=== PATIENT | female | born 1990 | race Caucasian/White ===

== ENCOUNTER 2017-04-01 07:25 | Emergency (ER) | payer OTHER ==
[~2017-04-01] VITALS: Ht 162.6 cm; Wt 86.2 kg
[2017-04-01] MEDS ORDERED: PRENATAL PO (07:40)
[2017-04-01] MEDS ORDERED: DICLEGIS DR 101 EACH PO (07:41)
[2017-04-01] MEDS ORDERED: ZANTAC 150MG T150 MG PO (07:41)
[2017-04-01] MEDS ORDERED: COLACE100 MG PO (07:41)
[2017-04-01 07:52] LABS: URINE BILIRUBIN NEGATIVE (Negative); URINE BLOOD NEGATIVE (Negative); URINE CLARITY CLEAR; URINE COLOR YELLOW; URINE GLUCOSE-RANDOM NEGATIVE (Negative); URINE KETONES NEGATIVE (Negative); URINE LEUKOCYTES-REFLEX 1+ (Negative); URINE NITRITE-REFLEX NEGATIVE (Negative); URINE PROTEIN NEGATIVE (Negative); URINE SPECIFIC GRAVITY 1.025 (1.005-1.030); URINE UROBILINOGEN 0.2 E.U./dl (0.2-1.0)
[2017-04-01 08:03] LABS: CASTS None Seen /LPF (None Seen); CRYSTALS None Seen /LPF (None Seen); MUCUS None Seen strn/LPF (None Seen); SQUAMOUS 4-10 Moderate /LPF (0-3); URINE RBC 3-10 Few /HPF (0-2); URINE WBC-REFLEX 6-15 Few /HPF (0-5)
[2017-04-01 08:07] LABS: HEMOGLOBIN 11.3 gm/dL (12.0-15.0); NUCLEATED RBCS 0 /100WBC
[2017-04-01 08:09] LABS: ABSOLUTE BASOPHILS 0.1 thou/uL (0.0-0.2); ABSOLUTE EOSINOPHILS 0.1 thou/uL (0.0-0.7); ABSOLUTE LYMPHOCYTES 1.9 thou/uL (0.8-5.3); ABSOLUTE MONOCYTES 0.3 thou/uL (0.0-1.2); ABSOLUTE NEUTROPHILS 5.8 thou/uL (1.6-8.1); BASOPHILS 0.7 %; EOSINOPHILS 1.2 %; HEMATOCRIT 31.5 % (37.0-47.0); LYMPHOCYTES 23.1 %; MCH 31.4 pg (26.0-34.0); MCHC 35.9 g/dL (28.0-37.0); MCV 87.3 fL (80.0-100.0); PLATELET COUNT* 287 thou/uL (150-400); RBC 3.61 mil/uL (4.20-5.00); RDW-CV 12.7 % (10.5-14.5); WBC 8.1 thou/uL (4.0-11.0)
[2017-04-01 08:15] LABS: CALCIUM 8.7 mg/dL (8.5-10.1); CREATININE 0.5 mg/dL (0.6-1.3); POTASSIUM 3.3 mmol/L (3.5-5.1)
[2017-04-01 08:19] LABS: ALBUMIN 2.9 g/dL (3.4-5.0); TOTAL BILIRUBIN 0.1 mg/dL (<0.1-1.0); TOTAL PROTEIN 6.5 g/dL (6.4-8.2)
[2017-04-01] MEDS ORDERED: KEFLEX500 M1 PO (09:24)
[2017-04-01 09:36] VITALS: BP 106/46
== END 2017-04-01 09:37 | disposition home or self-care (01) ==
LOC: M.ERS 07:25
PROVIDERS: Emergency Medicine Emergency Medical Services
DX: Z04.1 Encounter for examination and observation following transport accident (principal); V87.7XXA Person injured in collision between other specified motor vehicles (traffic), initial encounter; Y93.89 Activity, other specified; Y92.89 Other specified places as the place of occurrence of the external cause; Y99.8 Other external cause status